=== PATIENT | female | born 1970 | race Two or more races ===

== ENCOUNTER 2025-01-15 05:30 | Emergency (ER) | payer OTHER ==
[~2025-01-15] VITALS: Ht 160 cm; Wt 53.5 kg
[2025-01-15] MEDS ORDERED: LIDOCAINE HCL 1% 10ML VIAL ONE (05:45)
[2025-01-15] MEDS ORDERED: TETANUS & DIPHTHERIA TOX,ADULT 0.5 ML VIAL IM STA (06:08)
[2025-01-15] MEDS ORDERED: DIPHTH,PERTUSS(ACELL),TET VAC 0.5 ML SYRINGE IM ONE (06:10)
[2025-01-15] MEDS ORDERED: MUPIROCIN1 G1 TOP (06:41)
[2025-01-15] MEDS ORDERED: KETO10TA2 PO (06:41)
[2025-01-15] MEDS ORDERED: CEPHALEXIN500 MG PO (06:41)
== END 2025-01-15 06:47 ==
LOC: ER 05:47
DX: S61.317A Laceration without foreign body of left little finger with damage to nail, initial encounter (principal); X58.XXXA Exposure to other specified factors, initial encounter; Y93.89 Activity, other specified; Y92.89 Other specified places as the place of occurrence of the external cause; Y99.8 Other external cause status; G89.11 Acute pain due to trauma; M79.642 Pain in left hand
CPT/HCPCS: 12001; 29130; 73130; 90471; 90714; J1670